=== PATIENT | male | born 1950 | race Two or more races ===

== ENCOUNTER 2020-12-09 08:30 | Outpatient (CLI) | payer OTHER ==
--- NOTE | 2020-12-09 12:49 | Ultrasound Report ---
PROCEDURE: Pelvic Limited or F/U INDICATIONS: BULGE RIGHT GROIN, AA SCREEN, LOWER URINARY TRACT TECHNIQUE: Real-time transabdominal scanning was performed of the pelvic organs, with image documentation. COMPARISON: None. FINDINGS: The prevoid bladder volume is 335 cc. The post void bladder volume is 15 cc. Both uretera l jets can be seen. The prostate measures 3.4 x 3.2 x 4.8 cm. IMPRESSION: Mild post void residual, 15 cc. Mildly enlarged prostate. Reviewed by: Cesar Washburn MD on 12/09/2020 11:48 AM [facility] Approved by: Cesar Washburn MD on 12/09/2020 11:48 AM [facility] Station ID: [id number]
--- NOTE | 2020-12-09 17:57 | Ultrasound Report ---
PROCEDURE: Abdomen Complete INDICATIONS: BULGE RIGHT GROIN, AA SCREEN, LOWER URINARY TRACT TECHNIQUE: Real-time scanning was performed of the abdominal and retroperitoneal organs, with image documentatio n. COMPARISON: Correlation is made with the accompanying pelvis ultrasound, 12/09/2020 FINDINGS: Liver: The liver demonstrates mildly prominent size. The liver demonstrates moderately increased ec hogenicity, which limits ultrasound sensitivity for detection of masses. Gallbladder: No gallstones or significant sludge can be seen. The gallbladder wall does not appear th ickened. There is no specific pericholecystic fluid. The sonographic Stockton's sign is negative. Biliary ducts: Intrahepatic bile ducts are non-dilated. Extrahepatic bile duct caliber measures 4 m m. Normal is 6-7 mm or less in diameter, or 10 mm or less post-cholecystectomy. Pancreas: Visualized portions of the pancreas are sonographically normal. Spleen: Spleen is normal in size and homogeneous in echotexture. Kidneys: Kidneys are normal in size and echotexture. Right kidney measures 11.3 cm long; left kidne y measures 11.2 cm long. No hydronephrosis or nephrolithiasis. No solid masses. Aorta: Visualized aorta is normal in caliber at less than 3 cm. Iliacs: Proximal common iliac arteries are normal in caliber at less than 2.5 cm. IVC: Intrahepatic inferior vena cava is patent. Miscellaneous: No free abdominal fluid. Within the area of clinical concern involving the right groin, there is mesh seen at the area of the clinically palpable lump. Complex fluid can be seen at this site surrounding the mesh that measures 5 .6 x 1 point by 2.5 cm. No significant abnormal vascularity can be seen. No definite movement can be seen with Valsalva. IMPRESSION: At the area of clinical concern involving the right groin, there is complex fluid seen surrounding th e mesh. Abscesses possible, yet considered to be less likely. No lai recurrent hernia can be seen. Please consider a dedicated CT with IV and oral contrast for further evaluation. Negative for abdominal aortic aneurysm. Increased liver echogenicity is seen. This is nonspecific, yet it is most commonly attributed to fatt y infiltration. Reviewed by: Cesar Washburn MD on 12/09/2020 4:56 PM [facility] Approved by: Cesar Washburn MD on 12/09/2020 4:56 PM [facility] Station ID: [id number]
== END 2020-12-09 08:31 | disposition home or self-care (01) ==
LOC: DI 08:30
PROVIDERS: ATTEND Internal Medicine
DX: Z13.6 Encounter for screening for cardiovascular disorders (principal); R93.5 Abnormal findings on diagnostic imaging of other abdominal regions, including retroperitoneum; R93.2 Abnormal findings on diagnostic imaging of liver and biliary tract

== ENCOUNTER 2023-09-16 19:06 | Outpatient (CLI) | payer OTHER | END 2023-09-16 19:07 | disposition left against medical advice (07) | LOC: EMS 19:06 | DX: R55 Syncope and collapse (principal); R03.1 Nonspecific low blood-pressure reading ==